=== PATIENT | male | born 1960 | race Caucasian/White ===

== ENCOUNTER → 2023-11-08 10:32 | Outpatient (REF) | payer BC, SELFPAY ==
[2023-11-12 00:11] LABS: PSA, Ultrasensitive <0.01 ng/mL (0.00-4.00)
== END ==
LOC: HWLAB 10:32
PROVIDERS: ATTENDING PHYSICIAN Physician Assistant; FAMILY PHYSICIAN Internal Medicine; REFERRING PHYSICIAN Specialist
DX: C61 Malignant neoplasm of prostate (principal)
CPT/HCPCS: 36415; 84153

== ENCOUNTER → 2024-05-07 07:23 | Outpatient (REF) | payer BC, SELFPAY ==
[2024-05-07 10:16] LABS: ALT (SGPT) 22 U/L (0-50); AST (SGOT) 31 U/L (17-59); Albumin 4.5 g/dl (3.5-5.0); Alkaline Phosphatase 49 U/L (38-126); Blood Urea Nitrogen 26 mg/dl (9-20); Calcium 9.3 mg/dl (8.4-10.2); Carbon Dioxide 28 mmol/L (22-30); Chloride 105 mmol/L (98-107); Glucose 96 mg/dl (70-99); HDL Cholesterol 38 mg/dl; LDL Cholesterol, Calculated 168 mg/dl; Potassium 3.8 mmol/L (3.5-5.1); Sodium 140 mmol/L (135-145); Total Bilirubin 0.9 mg/dl (0.2-1.3); Total Cholesterol 228 mg/dl (50-199); Total Protein 6.8 g/dl (6.3-8.2); Triglyceride 112 mg/dl (10-149); Very Low Density Lipoprotein 22 mg/dl (0-30); eGFR > 60.00
[2024-05-07 11:30] LABS: % Basophils 0.7 % (0-2); % Eosinophils 3.8 % (0-6); % Lymphocytes 18.1 % (20.5-51.1); % Monocytes 11.3 % (1.7-9.3); % Neutrophils 66.1 % (42.2-75.2); Absolute Eosinophils 0.2 10^3/uL (0-0.7); Absolute Lymphocytes 0.8 10^3/uL (1.2-3.4); Absolute Monocytes 0.5 10^3/uL (0.1-0.6); Absolute Neutrophils 2.9 10^3/uL (1.4-6.5); Hematocrit 40.7 % (39.0-52.0); Mean Corp Hgb Conc. 34.4 g/dL (33.0-37.0); Mean Corpuscular Hgb 30.4 pg (27.0-31.0); Mean Corpuscular Volume 88.3 fL (80.0-94.0); Mean Platelet Volume 10.5 fL (7.4-10.4); Nucleated Red Blood Cells % 0 % (-); Platelet Count 227 10^3/uL (130-400); Red Blood Cell Count 4.61 10^6/uL (4.70-6.10); Red Cell Dist. Width 12.3 % (11.5-14.5); White Blood Cell Count 4.4 10^3/uL (4.8-10.8)
== END ==
LOC: HWLAB 07:23
PROVIDERS: ATTENDING PHYSICIAN Physician Assistant
DX: I10 Essential (primary) hypertension (principal); Z90.79 Acquired absence of other genital organ(s); E78.5 Hyperlipidemia, unspecified; J31.0 Chronic rhinitis
CPT/HCPCS: 36415; 80053; 80061; 85025

== ENCOUNTER 2024-12-23 06:21 | Day surgery (SDC) | payer BC, SELFPAY ==
[2024-12-09 09:00] LABS: Hematocrit 42.6 % (39.0-52.0); Hemoglobin 14.6 g/dL (13.0-18.0); Mean Corp Hgb Conc. 34.3 g/dL (33.0-37.0); Mean Corpuscular Hgb 30.5 pg (27.0-31.0); Mean Corpuscular Volume 88.9 fL (80.0-94.0); Mean Platelet Volume 9.8 fL (7.4-10.4); Platelet Count 200 10^3/uL (130-400); Red Blood Cell Count 4.79 10^6/uL (4.70-6.10); Red Cell Dist. Width 12.1 % (11.5-14.5); White Blood Cell Count 4.7 10^3/uL (4.8-10.8)
[2024-12-09 09:34] LABS: Blood Urea Nitrogen 17 mg/dl (9-20); Calcium 9.3 mg/dl (8.4-10.2); Carbon Dioxide 28 mmol/L (22-30); Chloride 100 mmol/L (98-107); Glucose 96 mg/dl (70-99); Potassium 3.8 mmol/L (3.5-5.1); Sodium 140 mmol/L (135-145); eGFR > 60.00
[2024-12-09 14:12] VITALS: BMI 27.5
[2024-12-23] VITALS (8 sets, daily range): BP systolic 129–153; BP diastolic 75–88; BMI 27.5
[2024-12-23] MEDS: NORMOSOL-R/PLASMALYTE-A 1000 IV (11:07)
[2024-12-23] MEDS: TYLENOL 1000 MG PO (11:07)
== END 2024-12-23 15:54 | disposition home or self-care (01) ==
LOC: SDS 06:21
PROVIDERS: ATTENDING PHYSICIAN Surgery; FAMILY PHYSICIAN Internal Medicine
DX: K43.9 Ventral hernia without obstruction or gangrene (principal); K40.90 Unilateral inguinal hernia, without obstruction or gangrene, not specified as recurrent
CPT/HCPCS: 49591; 49505; 36415; 80048; 85027; 93005; C1781